=== PATIENT | male | born 1965 | race Caucasian/White ===

== ENCOUNTER 2018-05-28 08:00 | Outpatient (CLI) | payer MEDICAID ==
[2018-05-28 12:16] LABS: BASOPHILS % (AUTO) 0.6 %; EOSINOPHILS % (AUTO) 17.5 %; HGB - HEMOGLOBIN 14.9 g/dL (14.0-18.0); LYMPHOCYTES # (AUTO) 1.3 10^3/uL (1.5-3.5); LYMPHOCYTES % (AUTO) 22.1 %; MEAN CORPUSCULAR HEMOGLOBIN 31.1 pg (27.0-31.0); MEAN CORPUSCULAR HGB CONC 33.6 g/dL (32.0-36.0); MEAN CORPUSCULAR VOLUME 92.6 fL (80.0-94.0); MEAN PLATELET VOLUME 8.3 fL (7.4-11.4); MONOCYTES # (AUTO) 0.5 10^3/uL (0.0-1.0); MONOCYTES % (AUTO) 8.3 %; NEUTROPHILS % (AUTO) 51.5 %; PLT - PLATELET COUNT 277 10^3/uL (130-450); RED BLOOD COUNT 4.79 10^6/uL (4.70-6.10); WHITE BLOOD COUNT 5.9 x10^3/uL (4.8-10.8)
[2018-05-28 12:45] LABS: BUN - BLOOD UREA NITROGEN 13 mg/dL (6-20); CALCIUM 9.4 mg/dL (8.5-10.3); CARBON DIOXIDE - CO2 27 mmol/L (21-32); CHLORIDE 104 mmol/L (101-111); CHOL/HDL RATIO 4.2 (<5.0); CHOLESTEROL 212 mg/dL; GFR - MDRD 78 (>89); GLUCOSE 105 mg/dL (70-100); HDL CHOLESTEROL 51 mg/dL; LDL CHOLESTEROL,CALCULATED 142 mg/dL; LDL/HDL RATIO 2.8 (<3.6); SODIUM 139 mmol/L (135-145); VLDL CHOLESTEROL 19 mg/dL
== END 2018-05-28 23:59 | disposition home or self-care (01) ==
LOC: LAB.N 08:00
PROVIDERS: ATTEND Physician Assistant Medical
DX: Z00.00 Encounter for general adult medical examination without abnormal findings (principal); R21 Rash and other nonspecific skin eruption; J45.909 Unspecified asthma, uncomplicated; F90.9 Attention-deficit hyperactivity disorder, unspecified type; R68.82 Decreased libido
CPT/HCPCS: 36415; 80048; 80061; 81599; 83721; 84153; 84402; 84403; 84443; 85025

== ENCOUNTER 2019-08-14 12:14 | Emergency (ER) | payer MEDICAID ==
--- NOTE | 2019-08-14 12:40 | ED Physician Documentation ---
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 States pain mostly in posterior shoulder at lateral scapular area.) Worsened by: Moving, Palpating Associated symptoms: No: Weakness, Numbness, Swelling Contributing factors: No: Anticoagulated, Prior ortho surgery Similar symptoms before: Has not had sx before Review of Systems Constitutional: denies: Fever Nose: denies: Rhinorrhea / runny nose, Congestion Throat: denies: Sore throat Respiratory: denies: Cough Skin: denies: Abrasion (s), Laceration (s) Neurologic: denies: Altered mental status, Headache, Head injury PD PAST MEDICAL HISTORY - Past Medical History Cardiovascular: None Respiratory: None Neuro: None - Present Medications Home Medications: Ambulatory Orders Medication Instructions Recorded Confirmed Hydrocodone/Acetaminophen [[place] 1 each PO Q6H PRN #15 tablet 08/14/19 5-325 Tablet] Ibuprofen [Motrin] 600 mg PO TID PRN #25 tab 08/14/19 - Allergies Allergies/Adverse Reactions: Allergies Allergy/AdvReac Type Severity Reaction Status Date / Time No Known Drug Allergies Allergy Verified 08/14/19 12:33 - Living Situation Living Situation: reports: With family Living Arrangement: reports: At home PD ED PE NORMAL - Vitals Vital signs reviewed: Yes - General General: Alert and oriented X 3, Well developed/nourished, Other (appears in pain and holding shoulder guarded) - HEENT HEENT: Atraumatic, PERRL, EOMI - Neck Neck: Supple, no meningeal sign, No bony TTP, No adenopathy - Cardiac Cardiac: RRR, No murmur - Respiratory Respiratory: Clear bilaterally, Other (no chestwall tenderness) - Derm Derm: Normal color, Warm and dry - Extremities Extremities: Other (right shoulder with tenderness posterolaterally. No gross deformity. ROM unable to assess due to pain/guarding. ) - Neuro Neuro: Alert and oriented X 3, No motor deficit, Normal speech Eye Opening: Spontaneous Motor: Obeys Commands Verbal: Oriented GCS Score: 15 Results - Vitals Vitals: Vital Signs - 24 hr 08/14/19 08/14/19 08/14/19 12:24 12:44 14:02 Temperature 36.4 C L 36.8 C Heart Rate 69 73 74 Respiratory 18 22 18 Rate Blood Pressure 134/83 H 133/89 H 123/68 O2 Saturation 94 98 97 Oxygen O2 Source Room air - Rads (name of study) shoulder right Radiology: Prelim report reviewed (no fractures nor dislocations), See rad report PD MEDICAL DECISION MAKING - ED course Complexity details: considered differential (seems localized injury to right shoulder. Will get xray to assess for fracture/dislocation. ), d/w patient Departure - Departure Disposition: 01 Home, Self Care Clinical Impression: Accidental fall Qualifiers: Encounter type: initial encounter Qualified Code(s): W19.XXXA - Unspecified fall, initial encounter Right shoulder strain Qualifiers: Encounter type: initial encounter Qualified Code(s): S46.911A - Strain of unspecified muscle, fascia and tendon at shoulder and upper arm level, right arm, initial encounter Condition: Stable Record reviewed to determine appropriate education?: Yes Instructions: ED Sprain Shoulder Follow-Up: Pancho Ramos MD [Provider Admit Priv/Credential] - Prescriptions: Ibuprofen [Motrin] 600 mg PO TID PRN #25 tab PRN Reason: Pain Hydrocodone/Acetaminophen [[place] 5-325 Tablet] 1 each PO Q6H PRN #15 tablet PRN Reason: Pain Comments: Sling most of the time with gentle range of motion (not against gravity) several times a day to reduce stiffness and adhesions. Your x-ray does not show any fractures nor dislocations. Presume you have some injury of the ligaments and muscles of the shoulder. Limited use of the shoulder for the next week. Follow-up with orthopedics in about 5 to 8 days for recheck and decision on progression of use. Ibuprofen 3 times a day. Add Tylenol or pain medicine as needed. Forms: Activity restrictions Discharge Date/Time: 08/14/19 14:10
[2019-08-14] MEDS ORDERED: MORPHINE 10 MG/ML VIAL IM STA (12:57)
[2019-08-14] MEDS ORDERED: KETOROLAC 30 MG/ML VIAL IM STA (12:57)
--- NOTE | 2019-08-14 13:12 | XRAY Report ---
PROCEDURE: Shoulder 3 View RT INDICATIONS: fall onto rt ehsan waite thinks dislocated TECHNIQUE: 3 views of the shoulder were acquired. COMPARISON: None. FINDINGS: Bones: No fractures or dislocations. No suspicious bony lesions. Visualized ribs appear intact. Soft tissues: No suspicious soft tissue calcifications. IMPRESSION: No evidence acute bony abnormality of the right shoulder. Reviewed by: Brendon Edwards MD on 08/14/2019 1:11 PM PDT Approved by: Brendon Edwards MD on 08/14/2019 1:11 PM PDT Station ID: [id number]
[2019-08-14 14:03] VITALS: BP 123/68
== END 2019-08-14 14:10 | disposition home or self-care (01) ==
LOC: ED 12:14
DX: S46.911A Strain of unspecified muscle, fascia and tendon at shoulder and upper arm level, right arm, initial encounter (principal); V89.9XXA Person injured in unspecified vehicle accident, initial encounter
CPT/HCPCS: 96374; 99284

== ENCOUNTER 2019-09-30 09:31 | Outpatient (CLI) | payer MEDICAID ==
--- NOTE | 2019-09-30 09:50 | XRAY Report ---
PROCEDURE: Elbow 2 View RT INDICATIONS: BICEP TENDINIITIS TECHNIQUE: 2 views of the elbow were acquired. COMPARISON: None FINDINGS: Bones: No fractures or dislocations. No suspicious bony lesions. Soft tissues: No elbow joint effusion. No suspicious soft tissue calcifications. IMPRESSION: No evidence acute bony abnormality of the right elbow. Reviewed by: Brendon Edwards MD on 09/30/2019 9:49 AM PDT Approved by: Brendon Edwards MD on 09/30/2019 9:49 AM PDT Station ID: [id number]
== END 2019-09-30 09:32 | disposition home or self-care (01) ==
LOC: DI.WCP 09:31
PROVIDERS: ATTEND Physician Assistant
DX: M75.20 Bicipital tendinitis, unspecified shoulder (principal)

== ENCOUNTER 2019-10-11 09:17 | Outpatient (CLI) | payer MEDICAID ==
[2019-10-11] MEDS ORDERED: GADOBUTROL 7.5 MMOL/7.5 ML VIAL ONE (09:38)
[2019-10-11] MEDS ORDERED: LIDOCAINE-MPF 1% 30 ML VIAL ID PRN (10:08)
[2019-10-11] MEDS ORDERED: GADOBUTROL 7.5 MMOL/7.5 ML VIAL IVP ONE (10:08)
[2019-10-11] MEDS ORDERED: iohexoL-240 10 ML VIAL IVP ONE (10:09)
--- NOTE | 2019-10-11 11:00 | MRI Report ---
PROCEDURE: Arthrogram Shoulder RT INDICATIONS: SUPRASPINATUS TEAR CONTRAST: 12 mL of dilute intra-articular Gadolinium contrast solution TECHNIQUE: After the administration of 12 mL of dilute intra-articular Gadolinium contrast, oblique coronal T1 a nd T2 spin echo with fat saturation, oblique sagittal T1 spin echo with and without fat saturation, o blique sagittal T2 fast spin echo with fat saturation, axial T1 spin echo with fat saturation through the shoulder. COMPARISON: Fluoroscopic images from arthrogram injection performed earlier the same day. Right shou lder radiographs dated 08/14/2019. FINDINGS: Image quality: Mildly degraded by patient motion on multiple sequences. Diagnostic information is obt ained.. Rotator cuff: There is full-thickness tearing of the supraspinatus and infraspinatus tendons from the ir distal insertions with proximal tendon retraction measuring up to 3.9 cm. A few dorsal fibers are only rejected by approximately 0.9 cm. There is mild tendinosis in the distal teres minor tendon. The subscapularis tendon is completely torn and retracted by approximately 2.9 cm. Edema is seen within the rotator cuff musculature, compatible with superimposed muscle strains. The humeral head is mildly high riding with narrowing of the acromiohumeral interval to 4 mm. Biceps tendon: The biceps long head tendon is medially dislocated, now located anterior to the glenoh umeral joint. There is low-grade intrasubstance tearing of the proximal biceps long head tendon. Bones and bursae: No bone marrow contusions or fractures. There is moderate acromioclavicular joint osteoarthrosis. Glenohumeral joint contrast material communicates with the subacromial/subdeltoid bur sa in the acromioclavicular joint space. Capsule and soft tissues: There is nondisplaced tearing of the superior to posterosuperior labrum. P artial effacement of the normal fat signal in the rotator interval is noted. The coracohumeral ligame nt is of normal thickness. No intra-articular bodies. IMPRESSION: 1. Massive rotator cuff tearing including complete tears of the supraspinatus, infraspinatus, and grimes bscapularis tendons with retraction. Proximal retraction of the supraspinatus tendon measures up to 3 .9 cm. Low-grade muscle strains are seen in the rotator cuff musculature. The humeral head is mildly high riding with narrowing of the acromiohumeral interval to 4 mm. 2. Medial dislocation of the biceps long head tendon with partial intrasubstance tearing at the tend on anchor. The biceps tendon is now located along the anterior aspect of the glenohumeral joint line. 3. Nondisplaced tearing of the superior and posterosuperior labrum. 4. Moderate acromioclavicular joint osteoarthrosis. Reviewed by: Elvis Briones MD on 10/11/2019 10:59 AM PDT Approved by: Elvis Briones MD on 10/11/2019 10:59 AM PDT Station ID: [id number]
--- NOTE | 2019-10-11 11:21 | XRAY Report ---
PROCEDURE: Arthrogram Needle Placement INDICATIONS: SUPRASPINATUS TEAR CONTRAST: CONTRAST: Omnipauqe 240, FLUOROSCOPY TIME: FLUORO TIME: 0.13 min and NUMBER IMAGES: 2 TECHNIQUE: The indications, alternatives, benefits, risks, and complications of the procedure were explained to the patient. Written informed consent was obtained and placed in the chart. The shoulder was examin ed fluoroscopically and a site for needle placement chosen for entry into the glenohumeral joint from an anterior approach. The skin was prepped and draped in the usual fashion, and 1% lidocaine infilt rated from skin down to joint capsule. A spinal needle was inserted into the glenohumeral joint, and a small amount of iodinated contrast media injected to confirm intra-articular placement of the need le tip. This was followed by approximately 12 mL dilute solution of a gadolinium containing MR contr ast agent. The needle was removed and a dressing was applied. The patient was given postprocedural instructions and sent to the MR suite for MR imaging. FINDINGS: A single fluoroscopic spot image demonstrates intra-articular location of injected iodinated contrast . IMPRESSION: Successful fluoroscopically guided administration of dilute Gadolinium solution into the shoulder giancarlo mccabe for MR arthrogram. Reviewed by: Anastasia Tsang MD on 10/11/2019 11:20 AM PDT Approved by: Anastasia Tsang MD on 10/11/2019 11:20 AM PDT Station ID: [id number]
== END 2019-10-11 09:18 | disposition home or self-care (01) ==
LOC: DI 09:17
PROVIDERS: ATTEND Physician Assistant
DX: S46.011A Strain of muscle(s) and tendon(s) of the rotator cuff of right shoulder, initial encounter (principal); S43.431A Superior glenoid labrum lesion of right shoulder, initial encounter; S46.111A Strain of muscle, fascia and tendon of long head of biceps, right arm, initial encounter; M19.011 Primary osteoarthritis, right shoulder
CPT/HCPCS: 23350; 73222; 77002; A9585; Q9966

== ENCOUNTER 2019-10-22 14:22 | Outpatient (CLI) | payer MEDICAID | END 2019-10-22 14:23 | disposition home or self-care (01) | LOC: COV 14:22 | PROVIDERS: ATTEND Orthopaedic Surgery | DX: Z01.818 Encounter for other preprocedural examination (principal); M75.101 Unspecified rotator cuff tear or rupture of right shoulder, not specified as traumatic; Z20.828 Contact with and (suspected) exposure to other viral communicable diseases ==

== ENCOUNTER 2019-10-27 07:17 | Day surgery (SDC) | payer MEDICAID ==
[~2019-10-27 07:17] MED LIST: BACITRACIN ZINC OINT 1 PACKET TOP ONE; BUPIVACAINE 0.25% PF 10 ML VIAL ONE; BUPIVACAINE 0.25%-EPI 1:200000 PF 30 ML VIAL ONE; LIDOCAINE 1%-EPI 1:100000 20 ML MDV ONE; LIDOCAINE-MPF 1% 30 ML VIAL ONE
[2019-10-27] MEDS ORDERED: ROPIVACAINE 0.5% PF 20 ML AMPULE ONE (07:18)
[2019-10-27] MEDS ORDERED: SODIUM CHLORIDE 0.9% 10 ML ONE (07:19)
[2019-10-27] MEDS ORDERED: EPINEPHrine 1 MG/ML AMP ONE ×2 (07:20→10:44)
[2019-10-27] MEDS ORDERED: ACETAMINOPHEN 1,000 MG/100 ML 100 ML IV ONE ×2 (07:26→08:23)
[2019-10-27] MEDS ORDERED: CEFAZOLIN SODIUM IN 0.9 % NACL 2 GM/100 ML BAG IV ONE (07:26)
[2019-10-27] MEDS ORDERED: CELECOXIB 100 MG CAPSULE PO ONE (07:26)
--- NOTE | 2019-10-27 07:27 | ANESTHESIA ---
Pre-Anesthesia VS, & Labs - Diagnosis right shoulder rotator cuff tear - Procedure Right shoulder arthroscopy with rotator cuff repair Height: 5 ft 6 in - NPO >8 hours - Lab Results Lab results reviewed: Yes Home Medications and Allergies Home Medications: Ambulatory Orders Acetaminophen [Tylenol] 650 mg PO Q6H PRN 10/20/19 Albuterol Sulfate [Proair Hfa Inhaler] 1 - 2 puffs INH Q4H PRN 10/20/19 Acetaminophen [Tylenol] 650 mg PO Q6H PRN 10/20/19 Albuterol Sulfate [Proair Hfa Inhaler] 1 - 2 puffs INH Q4H PRN 10/20/19 Allergies/Adverse Reactions: Allergies Allergy/AdvReac Type Severity Reaction Status Date / Time theophylline [From Guy-Dur] Allergy Nausea Verified 10/27/19 07:50 Anes History & Medical History - Medical History Cardiovascular: reports: None Pulmonary: reports: Asthma Gastrointestinal: reports: GERD Urinary: reports: None Neuro: reports: None Musculoskeletal: reports: Chronic back pain, Other (right shoulder rotator cuff tear) Endocrine/Autoimmune: reports: None Blood Disorders: reports: None Skin: reports: Eczema Smoking Status: Never smoker - Surgical History Eyes Ears Nose Throat (EENT): Tonsil/Adenoidectomy Exam General: Alert, Oriented x3, Cooperative, No acute distress Dental: Dentures full Upper, Dentures full Lower Mouth Openin Fingerbreadth Neck Mobility: Normal Mallampati classification: I Respiratory: Lungs clear, Normal breath sounds, No respiratory distress, No accessory muscle use Cardiovascular: Regular rate, Normal S1, Normal S2, No murmurs Plan Anesthesia Type: General, Interscalene Block Regional Block: Per Surgeon's request for Post Op pain control Consent for Procedure(s) Verified and Reviewed: Yes Code Status: Attempt Resuscitation ASA classification: 2-Mild systemic disease Is this case an emergency?: No
[2019-10-27] MEDS ORDERED: LACTATED RINGERS 1,000 ML IV ONE ×2 (07:33→12:31)
[2019-10-27] MEDS ORDERED: PHENYLEPHRINE 10 MG/ML VIAL IV ONE (08:23)
[2019-10-27] MEDS ORDERED: PROPOFOL 200 MG/20 ML VIAL IVP ONE (08:23)
[2019-10-27] MEDS ORDERED: SUCCINYLCHOLINE 200 MG/10 ML VIAL IVP ONE (08:23)
[2019-10-27] MEDS ORDERED: ePHEDrine 50 MG/ML VIAL IVP ONE (08:23)
[2019-10-27] MEDS ORDERED: LIDOCAINE-MPF 2% 5 ML VIAL IM ONE (08:23)
[2019-10-27] MEDS ORDERED: DEXAMETHASONE 4 MG/ML VIAL IVP ONE (08:23)
[2019-10-27] MEDS ORDERED: ESMOLOL 100 MG/10 ML VIAL IVP ONE (08:23)
[2019-10-27] MEDS ORDERED: ONDANSETRON 4 MG/2 ML VIAL IVP ONE (08:23)
[2019-10-27] MEDS ORDERED: MIDAZOLAM 2 MG/2 ML VIAL IVP ONE (08:23)
[2019-10-27] MEDS ORDERED: NALOXONE 0.4 MG/ML VIAL IVP PRN (09:16)
[2019-10-27] MEDS ORDERED: ATROPINE ABBOJECT 1 MG/10 ML SYRINGE IVP PRN (09:16)
[2019-10-27] MEDS ORDERED: ePHEDrine 50 MG/ML VIAL IVP PRN (09:16)
[2019-10-27] MEDS ORDERED: ONDANSETRON 4 MG/2 ML VIAL IVP PRN (09:16)
[2019-10-27] MEDS ORDERED: HYDROmorphone 0.5 MG/0.5 ML SYRINGE IVP PRN (09:16)
[2019-10-27] MEDS ORDERED: MORPHINE 2 MG/ML CARPUJECT IVP PRN (09:16)
[2019-10-27] MEDS ORDERED: METOCLOPRAMIDE 10 MG/2 ML VIAL IVP PRN (09:16)
[2019-10-27] MEDS ORDERED: fentaNYL 100 MCG/2 ML VIAL IVP PRN (09:16)
[2019-10-27] MEDS ORDERED: LACTATED RINGERS 1,000 ML IV SCH (10:00)
[2019-10-27] MEDS ORDERED: HYDROcod/ACETAM 10 MG/325 MG TABLET PO PRN (12:29)
[2019-10-27] MEDS ORDERED: KETOROLAC 15 MG/ML VIAL IVP STA (12:29)
[2019-10-27] MEDS ORDERED: HYDROcod/ACETAM 5/325 MG TABLET PO PRN (12:29)
--- NOTE | 2019-10-27 13:11 | OPERATIVE REPORT ---
Operative Report - General Procedure Date: 10/27/19 Planned Procedure: Arthroscopy right shoulder, rotator cuff repair Pre-Op Diagnosis: Large traumatic rotator cuff tear right shoulder Procedure Performed: Arthroscopy right shoulder, rotator cuff repair right shoulder Post Op Diagnosis: Large retracted rotator cuff tear right shoulder - Procedure Note Primary Surgeon: Richard Franklin M.D. Secondary Surgeon: WILLIE Avendano Anesthesia Technique: General ET tube, Regional block Estimated Blood Loss (mL): 20 Indications: This is a 54-year-old man with a history of a fall and subsequent pain and weakness to his right shoulder within the past 3 months. He is not improving and has pain and weakness to the right shoulder, very poor active motion but good passive motion. Routine radiographs are normal. 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 The tendon was retracted and difficult to mobilize. The cuff was retracted medially and posteriorly.The tendon retraction was so great that most of all the humeral head was exposed Complications: None - Other Other Information/Narrative: The patient was brought to the operating room. After satisfactory anesthesia was achieved, he was placed in a beachchair positioner. The right upper extremity was prepped and draped in a sterile manner in the usual fashion. Care was taken to place the neck in a neutral position. A timeout procedure was performed the entire operating room team and all were in agreement. Arthroscopy was performed through a posterior glenohumeral portal using the Canjilon 30 degree of black diagnostic arthroscope, V[place]o camera and arthroscopic pump through the arthroscope. An anterior portal was established in the safe triangle under direct visualization. The articular surfaces of the humeral head and glenoid were intact as well as the glenoid labrum although there was some fraying of the inferior glenoid labrum there was no detachment. The biceps tendon was unstable. The footprint was obviously abnormal with complete loss of the normal footprint from tendon disruption. The arthroscope was then placed in the subacromial space again using a posterior portal. A lateral subacromial space was used to perform a bursectomy and expose the rotator cuff tear. A posterior lateral portal was made for the arthroscope. Cannulas were placed anteriorly, posteriorly and also through the lateral subacromial space. A traction FiberWire suture was inserted. The cuff was mobilized by dissecting on the articular and bursal sides and I was able to mobilize the cuff to bring it close to its normal footprint but still incomplete coverage anteriorly. The Arthrex fiber tape was utilized using mattress sutures anteriorly and 1 posteri silvia. A total of 6 fiber tape suture strands were inserted with 1 acting as a rip stop stitch. The suture tape held well and the tendon mobilized reasonably well but still a partial repair since mobilization was not totally back to the anatomic location of the tuberosity. The biceps tendon was incorporated in the repair to act as a tenodesis. 3 Arthrex suture anchors were inserted with each of the 2 fiber tape strands going to a single anchor. This provided a secure repair with motion with the arm out of side. The anchors were inserted through a mini open incision measuring 2 cm. The wounds were irrigated. Incisions were closed with 4-0 nylon, Xeroform, dry sterile dressing and Pancho wrap. He did receive 2 g of Ancef intravenously and tolerated the procedure well he was placed in a abduction sling.
--- NOTE | 2019-10-27 13:21 | ANESTHESIA POST OP EVALUATION ---
Anesthesia Post Eval - Post Anesthesia Eval Vitals: Last Vital Signs Temp 36.8 C 10/27/19 13:15 Pulse 87 10/27/19 13:15 Resp 16 10/27/19 13:15 BP 08/72 L 10/27/19 13:15 Pulse Ox 94 10/27/19 13:15 CV Function Including HR & BP: positive: Stable Pain Control: positive: Satisfactory Nausea & Vomiting: positive: Negative Mental Status: positive: Baseline Respiratory Status: Airway Patent Hydration Status: Satisfactory Anesthesia Complications: positive: None
[2019-10-27 13:36] VITALS: BP 112/62
== END 2019-10-27 07:18 | disposition home or self-care (01) ==
LOC: SDS 07:17
PROVIDERS: ATTEND Orthopaedic Surgery
DX: S46.011A Strain of muscle(s) and tendon(s) of the rotator cuff of right shoulder, initial encounter (principal); S46.111A Strain of muscle, fascia and tendon of long head of biceps, right arm, initial encounter; W17.89XA Other fall from one level to another, initial encounter
CPT/HCPCS: 29827; 29828; A9270; C1713; J0131; J0330; J0690; J7120

== ENCOUNTER 2019-11-24 08:00 | Outpatient (CLI) | payer MEDICAID ==
[2019-11-24 12:31] LABS: BASOPHILS % (AUTO) 0.5 %; HGB - HEMOGLOBIN 14.9 g/dL (14.0-18.0); LYMPHOCYTES % (AUTO) 20.3 %; MEAN CORPUSCULAR HEMOGLOBIN 31.5 pg (27.0-31.0); MEAN CORPUSCULAR HGB CONC 34.3 g/dL (32.0-36.0); MEAN CORPUSCULAR VOLUME 91.8 fL (80.0-94.0); MEAN PLATELET VOLUME 9.9 fL (7.4-11.4); MONOCYTES % (AUTO) 8.8 %; NEUTROPHILS % (AUTO) 56.1 %; PLT - PLATELET COUNT 289 10^3/uL (130-450); RED BLOOD COUNT 4.73 10^6/uL (4.70-6.10); RED CELL DISTRIBUTION WIDTH 12.2 % (12.0-15.0); WHITE BLOOD COUNT 7.6 x10^3/uL (4.8-10.8)
[2019-11-24 12:46] LABS: ABNORMAL LYMPHS % (MANUAL) 0 %; BAND NEUTROPHILS % (MANUAL) 0 %
[2019-11-24 12:51] LABS: DIFFERENTIAL COMMENT MANUAL DIFFERENTIAL; EOSINOPHILS # (MANUAL) 0.7 10^3/uL (0-0.7); LYMPHOCYTES # (MANUAL) 1.4 10^3/uL (1.5-3.5); LYMPHOCYTES % (MANUAL) 18 %; MONOCYTES # (MANUAL) 0.4 10^3/uL (0.0-1.0); PLATELET ESTIMATE, MANUAL NORMAL (130-450,000) (NORMAL); PLATELET MORPHOLOGY NORMAL APPEARANCE (NORMAL); RBC MORPHOLOGY (MULTIPLE) NORMAL APPEARANCE (NORMAL)
[2019-11-24 12:52] LABS: ALBUMIN 4.6 g/dL (3.2-5.5); ALBUMIN/GLOBULIN RATIO 1.6 (1.0-2.2); ALKALINE PHOSPHATASE 62 IU/L (42-121); ALT ALANINE AMINOTRANSFERASE 40 IU/L (10-60); AST ASPARTATE AMINOTRANSFERASE 25 IU/L (10-42); BILIRUBIN,TOTAL 0.9 mg/dL (0.2-1.0); BUN - BLOOD UREA NITROGEN 19 mg/dL (6-20); CALCIUM 9.8 mg/dL (8.5-10.3); CARBON DIOXIDE - CO2 27 mmol/L (21-32); CHLORIDE 103 mmol/L (101-111); CHOL/HDL RATIO 5.7 (<5.0); CHOLESTEROL 216 mg/dL; GLUCOSE 109 mg/dL (70-100); HDL CHOLESTEROL 38 mg/dL; LDL CHOLESTEROL,CALCULATED 138 mg/dL; LDL/HDL RATIO 3.6 (<3.6); SODIUM 140 mmol/L (135-145); TOTAL PROTEIN 7.5 g/dL (6.7-8.2); VLDL CHOLESTEROL 40 mg/dL
== END 2019-11-24 23:59 | disposition home or self-care (01) ==
LOC: LAB.WCP 08:00
PROVIDERS: ATTEND Nurse Practitioner Family
DX: Z00.00 Encounter for general adult medical examination without abnormal findings (principal)
CPT/HCPCS: 36415; 80053; 80061; 83721; 84443; 85025

== ENCOUNTER 2020-09-02 10:34 | Outpatient (CLI) | payer MEDICAID ==
--- NOTE | 2020-09-02 11:41 | XRAY Report ---
PROCEDURE: Chest 2 View X-Ray INDICATIONS: RESPIRATORY INFECTION TECHNIQUE: 2 view(s) of the chest. COMPARISON: None. FINDINGS: Surgical changes and devices: None. Lungs and pleura: No pleural effusions or pneumothorax. Lungs are clear. Mediastinum: Mediastinal contours are normal. Heart size is normal. Bones and chest wall: No suspicious bony abnormalities. Age-appropriate degenerative changes are see n. Soft tissues appear unremarkable. IMPRESSION: Negative for infiltrate. Reviewed by: Vic Morel MD on 09/02/2020 10:40 AM CADE Approved by: Vic Morel MD on 09/02/2020 10:40 AM AKMANUEL Station ID: [id number]
== END 2020-09-02 10:35 | disposition home or self-care (01) ==
LOC: DI.N 10:34
PROVIDERS: ATTEND Nurse Practitioner
DX: J06.9 Acute upper respiratory infection, unspecified (principal); Z20.822 Contact with and (suspected) exposure to COVID-19

== ENCOUNTER 2021-03-15 08:49 | Outpatient (CLI) | payer MEDICAID ==
--- NOTE | 2021-03-15 16:31 | XRAY Report ---
PROCEDURE: Hand 3 View RT INDICATIONS: HAND PAIN TECHNIQUE: 3 views of the hand acquired. COMPARISON: None. FINDINGS: Bones: No fractures or dislocations. There is mild narrowing of the distal interphalangeal joints. V isualized is also mild narrowing at the first metacarpophalangeal and carpometacarpal joints. No disc rete bony erosions. Osseous structures appear osteopenic. No suspicious bony lesions. Soft tissues: No suspicious soft tissue calcifications. IMPRESSION: 1. No fracture or dislocation. 2. Mild osteoarthritic changes of the DIP joints as well as the first MCP and CMC joints. Reviewed by: Aguilar Vega MD on 03/15/2021 4:30 PM PST Approved by: Aguilar Vega MD on 03/15/2021 4:30 PM [facility] Station ID: [id number]
== END 2021-03-15 08:50 | disposition home or self-care (01) ==
LOC: DI.WOS 08:49
PROVIDERS: ATTEND Physician Assistant
DX: M18.11 Unilateral primary osteoarthritis of first carpometacarpal joint, right hand (principal); M19.041 Primary osteoarthritis, right hand

== ENCOUNTER 2021-08-29 14:34 | Outpatient (CLI) | payer MEDICAID ==
--- NOTE | 2021-08-29 17:16 | XRAY Report ---
PROCEDURE: Cervical Spine w/Flex/Ext INDICATIONS: CERVICALGIA TECHNIQUE: 7 views of the cervical spine were acquired. COMPARISON: None. FINDINGS: Bones: No fractures or dislocations to the C7-T1 level. Degenerative endplate changes, loss of disc height and bilateral facet hypertrophic changes are noted at C3-4 through C7-T1 levels. Right worse than left bilateral bony foraminal stenosis at C3-4, C5-6 and C6-7 levels are seen on oblique views. No suspicious bony lesions. There is decreased range of motion between flexion and extension, with p reserved normal bony alignment. Soft tissues: Prevertebral soft tissues are normal in thickness. IMPRESSION: 1. Degenerative disc disease throughout cervical spine with right worse than left bilateral bony fora mayuri stenosis as described above. No acute fracture or dislocation. 2. Decreased range of motion on lateral flexion and extension views with preserved cervical spine ali gnment. Reviewed by: You Young MD on 08/29/2021 5:15 PM PDT Approved by: You Young MD on 08/29/2021 5:15 PM PDT Station ID: [id number]
--- NOTE | 2021-08-29 17:53 | XRAY Report ---
PROCEDURE: Skull 2 View INDICATIONS: OCCIPITAL NEURALGIA TECHNIQUE: 3 view(s) of the skull acquired. COMPARISON: None FINDINGS: Bones: No fractures. No suspicious bony lesions. Visualized sinuses appear clear. Soft tissues: No soft tissue calcifications. No suspicious soft tissue densities. IMPRESSION: Unremarkable skull radiographs Reviewed by: Byron Casas MD on 08/29/2021 4:52 PM AKDT Approved by: Byron Casas MD on 08/29/2021 4:52 PM AKDT Station ID: [id number]
== END 2021-08-29 14:35 | disposition home or self-care (01) ==
LOC: DI.N 14:34
PROVIDERS: ATTEND Family Medicine
DX: M54.81 Occipital neuralgia (principal); M47.812 Spondylosis without myelopathy or radiculopathy, cervical region; M50.31 Other cervical disc degeneration, high cervical region; M48.02 Spinal stenosis, cervical region

== ENCOUNTER 2021-11-08 08:14 | Day surgery (SDC) | payer MEDICAID ==
[2021-11-08] MEDS ORDERED: LACTATED RINGERS 1,000 ML IV ONE (08:16)
--- NOTE | 2021-11-08 08:48 | HISTORY & PHYSICAL EXAMINATION ---
Chief Complaint - Chief Complaint Chief Complaint: here for colon cancer screening History of Present Illness - History Obtained From Records Reviewed: yes History obtained from: pt Exam Limitations: none - History of Present Illness HPI Comment/Other: no colon problems. father and grandfather had colon cancer at an older age. He had a colonoscopy age 49. he may have had a polyp. History - Past Medical History Cardiovascular: reports: None Respiratory: reports: Asthma Neuro: reports: None Endocrine/Autoimmune: reports: None GI: reports: GERD : reports: None HEENT: reports: None Psych: reports: ADD/ADHD Musculoskeletal: reports: Chronic back pain, Other Derm: reports: Eczema MRSA Hx?: No - Past Surgical History Ortho: reports: Rotator cuff repair, Shoulder arthroplasty HEENT: reports: Tonsil/Adenoidectomy - POLST Patient has POLST: No Meds/Allgy - Home Medications Home Medications: Ambulatory Orders Medication Instructions Recorded Confirmed Acetaminophen [Tylenol] 650 mg PO Q6H PRN 10/20/19 11/07/21 Albuterol Sulfate [Proair Hfa 1 - 2 puffs INH Q4H PRN 10/20/19 11/07/21 Inhaler] - Allergies Allergies/Adverse Reactions: Allergies Allergy/AdvReac Type Severity Reaction Status Date / Time theophylline [From Guy-Dur] Allergy Nausea Verified 10/27/19 07:50 Review of Systems - Other Findings Other Findings: 10 pt ros as above otherwise unremarkable Exam - Vital Signs Vital Signs: Vital Signs x48h Temp Pulse Resp BP Pulse Ox O2 Flow Rate 11/08/21 08:24 36.5 C 80 16 116/85 H 97 0 - Physical Exam General Appearance: positive: No acute distress, Alert Eyes Bilateral: positive: PERRL, EOMI, No scleral icterus ENT: positive: No signs of dehydration Neck: positive: No JVD Respiratory: positive: No respiratory distress, Breath sounds nml Cardiovascular: positive: Regular rate & rhythm Abdomen: positive: Non-tender, No distention Neurologic/Psychiatric: positive: Oriented x3 Conclusion/Plan - Problem List (1) Colon cancer screening Conclusion/Plan: plan colonoscopy. parq held and consent obtained
--- NOTE | 2021-11-08 08:57 | ANESTHESIA ---
Pre-Anesthesia VS, & Labs - Diagnosis colon screening - Procedure colonoscopy Vital Signs: Temp Pulse Resp BP Pulse Ox O2 Flow Rate 36.5 C 80 16 116/85 H 97 0 11/08/21 08:24 11/08/21 08:24 11/08/21 08:24 11/08/21 08:24 11/08/21 08:24 11/08/21 08:24 Height: 5 ft 5 in Weight (kg): 74.2 kg Body Mass Index: 27.2 BMI Classification: Overweight - NPO >8 hours - Lab Results Lab results reviewed: No Home Medications and Allergies Acetaminophen [Tylenol] 650 mg PO Q6H PRN 10/20/19 Albuterol Sulfate [Proair Hfa Inhaler] 1 - 2 puffs INH Q4H PRN 10/20/19 Allergies/Adverse Reactions: Allergies Allergy/AdvReac Type Severity Reaction Status Date / Time theophylline [From Guy-Dur] Allergy Nausea Verified 10/27/19 07:50 Anes History & Medical History - Anesthetic History Anesthesia Complications: reports: No previous complications Family history of Anesthesia Complications: Denies Family history of Malignant Hyperthermia: Denies - Medical History Cardiovascular: reports: None Pulmonary: reports: Asthma Gastrointestinal: reports: GERD Urinary: reports: None Neuro: reports: None Musculoskeletal: reports: Chronic back pain, Other Endocrine/Autoimmune: reports: None Blood Disorders: reports: None Skin: reports: Eczema Smoking Status: Never smoker Psychosocial: reports: Alcohol, Cannabis History of Cancer?: No - Surgical History Eyes Ears Nose Throat (EENT): reports: Tonsil/Adenoidectomy Orthopedic: reports: Rotator cuff repair, Shoulder arthroplasty Exam General: Alert, Oriented x3, Cooperative, No acute distress Dental: Dentures full Upper, Dentures full Lower Mouth Openin Fingerbreadth Neck Mobility: Reduced Mallampati classification: III Thyromental Distance: 4-6 cm (+chu) Mental/Cognitive Status: Alert/Oriented X3, Normal for patient Cognitive Status: Within normal limits Plan Anesthesia Type: General Consent for Procedure(s) Verified and Reviewed: Yes Code Status: Attempt Resuscitation ASA classification: 2-Mild systemic disease Is this case an emergency?: No
[2021-11-08] MEDS ORDERED: MIDAZOLAM 2 MG/2 ML VIAL ONE (09:30)
[2021-11-08] MEDS ORDERED: PROPOFOL 500 MG/50 ML 500 MG/50 ML VIAL ONE (09:35)
[2021-11-08] MEDS ORDERED: LACTATED RINGERS 400 ML IV ONE (09:43)
--- NOTE | 2021-11-08 10:07 | ANESTHESIA POST OP EVALUATION ---
Anesthesia Post Eval - Post Anesthesia Eval Vitals: Last Vital Signs Temp 36.2 C L 11/08/21 09:45 Pulse 75 11/08/21 09:45 Resp 12 11/08/21 09:45 BP 110/69 11/08/21 09:45 Pulse Ox 97 11/08/21 09:45 O2 Flow Rate 0 11/08/21 08:24 CV Function Including HR & BP: Stable Pain Control: Satisfactory Nausea & Vomiting: Negative Mental Status: Baseline Respiratory Status: Airway Patent Hydration Status: Satisfactory Anesthesia Complications: None
[2021-11-08 10:11] VITALS: BP 109/67
== END 2021-11-08 08:15 | disposition home or self-care (01) ==
LOC: SDS 08:14
PROVIDERS: ATTEND Surgery
DX: Z12.11 Encounter for screening for malignant neoplasm of colon (principal); Z80.0 Family history of malignant neoplasm of digestive organs; J45.909 Unspecified asthma, uncomplicated
CPT/HCPCS: 45378; J7120

== ENCOUNTER 2021-11-15 09:56 | Outpatient (CLI) | payer MEDICAID ==
[2021-11-15 12:06] LABS: BASOPHILS # (AUTO) 0.1 10^3/uL (0.0-0.1); BASOPHILS % (AUTO) 0.5 %; EOSINOPHILS # (AUTO) 0.5 10^3/uL (0.0-0.7); HCT - HEMATOCRIT 52.1 % (42.0-52.0); HGB - HEMOGLOBIN 18.1 g/dL (14.0-18.0); LYMPHOCYTES # (AUTO) 1.8 10^3/uL (1.5-3.5); LYMPHOCYTES % (AUTO) 18.4 %; MEAN CORPUSCULAR HEMOGLOBIN 31.5 pg (27.0-31.0); MEAN CORPUSCULAR HGB CONC 34.7 g/dL (32.0-36.0); MEAN CORPUSCULAR VOLUME 90.8 fL (80.0-94.0); MEAN PLATELET VOLUME 9.4 fL (7.4-11.4); MONOCYTES # (AUTO) 0.9 10^3/uL (0.0-1.0); NEUTROPHILS # (AUTO) 6.5 10^3/uL (1.5-6.6); NEUTROPHILS % (AUTO) 66.7 %; PLT - PLATELET COUNT 302 10^3/uL (130-450); RED BLOOD COUNT 5.74 10^6/uL (4.70-6.10); RED CELL DISTRIBUTION WIDTH 11.9 % (12.0-15.0); WHITE BLOOD COUNT 9.8 x10^3/uL (4.8-10.8)
[2021-11-15 12:39] LABS: ALBUMIN 4.5 g/dL (3.2-5.5); ALBUMIN/GLOBULIN RATIO 1.3 (1.0-2.2); ALKALINE PHOSPHATASE 63 IU/L (42-121); ALT ALANINE AMINOTRANSFERASE 60 IU/L (10-60); AST ASPARTATE AMINOTRANSFERASE 50 IU/L (10-42); BUN - BLOOD UREA NITROGEN 12 mg/dL (6-20); CALCIUM 10.2 mg/dL (8.5-10.3); CARBON DIOXIDE - CO2 27 mmol/L (21-32); CHLORIDE 101 mmol/L (101-111); CHOL/HDL RATIO 5.2 (<5.0); CHOLESTEROL 278 mg/dL; CREATININE 1.1 mg/dL (0.6-1.2); GFR - MDRD 69 (>89); GLUCOSE 120 mg/dL (70-100); HDL CHOLESTEROL 53 mg/dL; LDL CHOLESTEROL,CALCULATED 165 mg/dL; LDL/HDL RATIO 3.1 (<3.6); POTASSIUM 5.1 mmol/L (3.5-5.0); SODIUM 136 mmol/L (135-145); TRIGLYCERIDES 300 mg/dL; VLDL CHOLESTEROL 60 mg/dL
[2021-11-15 12:40] LABS: THYROID STIMULATING HORMONE 2.1 uIU/mL (0.34-5.60)
== END 2021-11-15 09:57 | disposition home or self-care (01) ==
LOC: LAB.N 09:56
PROVIDERS: ATTEND Family Medicine
DX: J45.909 Unspecified asthma, uncomplicated (principal); F90.9 Attention-deficit hyperactivity disorder, unspecified type; Z12.5 Encounter for screening for malignant neoplasm of prostate
CPT/HCPCS: 36415; 80053; 80061; 83721; 84153; 84443; 85025

== ENCOUNTER 2021-11-28 07:23 | Day surgery (SDC) | payer MEDICAID ==
[~2021-11-28 07:23] MED LIST changes: +ACETAMINOPHEN 500 MG TABLET PO ONE; -BACITRACIN ZINC OINT 1 PACKET TOP ONE; -BUPIVACAINE 0.25% PF 10 ML VIAL ONE; -BUPIVACAINE 0.25%-EPI 1:200000 PF 30 ML VIAL ONE; +BUPIVACAINE 0.5% PF 30 ML VIAL ONE; +CELECOXIB 100 MG CAPSULE PO ONE; -LIDOCAINE 1%-EPI 1:100000 20 ML MDV ONE; +LIDOCAINE MPF 2%-EPI 1:200000 20 ML VIAL ONE; -LIDOCAINE-MPF 1% 30 ML VIAL ONE
[2021-11-28] MEDS ORDERED: LACTATED RINGERS 1,000 ML IV ONE (07:37)
--- NOTE | 2021-11-28 07:59 | ANESTHESIA ---
Pre-Anesthesia VS, & Labs - Diagnosis R 3rd 4th trigger finger - Procedure R 3rd 4th trigger finger release Vital Signs: Temp Pulse Resp BP Pulse Ox O2 Flow Rate 36.6 C 76 16 130/77 97 0 11/28/21 07:38 11/28/21 07:38 11/28/21 07:38 11/28/21 07:38 11/28/21 07:38 11/28/21 07:38 Height: 5 ft 6 in Weight (kg): 76.5 kg Body Mass Index: 27.2 BMI Classification: Overweight - NPO >8 hours - Lab Results Lab results reviewed: Yes Home Medications and Allergies Acetaminophen [Tylenol] 650 mg PO Q6H PRN 10/20/19 Albuterol Sulfate [Proair Hfa Inhaler] 1 - 2 puffs INH Q4H PRN 10/20/19 Allergies/Adverse Reactions: Allergies Allergy/AdvReac Type Severity Reaction Status Date / Time theophylline [From Guy-Dur] Allergy Nausea Verified 11/28/21 06:52 Anes History & Medical History - Anesthetic History Anesthesia Complications: reports: No previous complications Family history of Anesthesia Complications: Denies Family history of Malignant Hyperthermia: Denies - Medical History Cardiovascular: reports: None Pulmonary: reports: Asthma Gastrointestinal: reports: GERD Urinary: reports: None Neuro: reports: None Musculoskeletal: reports: Chronic back pain, Other Endocrine/Autoimmune: reports: None Blood Disorders: reports: None Skin: reports: Eczema Smoking Status: Never smoker Psychosocial: reports: Alcohol, Cannabis History of Cancer?: No - Surgical History Eyes Ears Nose Throat (EENT): reports: Tonsil/Adenoidectomy Orthopedic: reports: Rotator cuff repair, Shoulder arthroplasty Exam General: Alert, Oriented x3, Cooperative Dental: Dentures full Upper, Dentures full Lower Mouth Openin Fingerbreadth Neck Mobility: Normal Mallampati classification: II Thyromental Distance: 4-6 cm Respiratory: Lungs clear, Normal breath sounds, No respiratory distress Cardiovascular: Regular rate Neurological: Normal speech Mental/Cognitive Status: Alert/Oriented X3, Normal for patient Cognitive Status: Within normal limits Plan Anesthesia Type: General, Total IV Consent for Procedure(s) Verified and Reviewed: Yes Code Status: Attempt Resuscitation ASA classification: 2-Mild systemic disease Is this case an emergency?: No
[2021-11-28] MEDS ORDERED: PROPOFOL 200 MG/20 ML VIAL IVP ONE (08:00)
[2021-11-28] MEDS ORDERED: PROPOFOL 500 MG/50 ML 500 MG/50 ML VIAL ONE (08:00)
[2021-11-28] MEDS ORDERED: MIDAZOLAM 2 MG/2 ML VIAL ONE (08:00)
[2021-11-28] MEDS ORDERED: fentaNYL 100 MCG/2 ML VIAL ONE (08:00)
[2021-11-28] MEDS ORDERED: ATROPINE ABBOJECT 1 MG/10 ML SYRINGE IVP PRN (08:01)
[2021-11-28] MEDS ORDERED: ONDANSETRON 4 MG/2 ML VIAL IVP PRN (08:01)
[2021-11-28] MEDS ORDERED: fentaNYL 100 MCG/2 ML VIAL IVP PRN (08:01)
[2021-11-28] MEDS ORDERED: HYDROmorphone 0.5 MG/0.5 ML SYRINGE IVP PRN (08:01)
[2021-11-28] MEDS ORDERED: MORPHINE 2 MG/ML CARPUJECT IVP PRN (08:01)
[2021-11-28] MEDS ORDERED: NALOXONE 0.4 MG/ML VIAL IVP PRN (08:01)
[2021-11-28] MEDS ORDERED: METOCLOPRAMIDE 10 MG/2 ML VIAL IVP PRN (08:01)
[2021-11-28] MEDS ORDERED: ePHEDrine 50 MG/ML VIAL IVP PRN (08:01)
[2021-11-28] MEDS ORDERED: LIDOCAINE-PF 2% 10 ML AMP SUBQ ONE (08:35)
[2021-11-28] MEDS ORDERED: LIDOCAINE MPF 2%-EPI 1:200000 20 ML VIAL SUBQ ONE ×2 (08:49)
[2021-11-28] MEDS ORDERED: BUPIVACAINE 0.5% PF 30 ML VIAL INFIL ONE ×2 (08:49)
[2021-11-28] MEDS ORDERED: LACTATED RINGERS 1,000 ML IV SCH (09:00)
[2021-11-28] MEDS ORDERED: LACTATED RINGERS 200 ML IV ONE (09:21)
--- NOTE | 2021-11-28 09:31 | OPERATIVE REPORT ---
Operative Report - General Procedure Date: 11/28/21 Planned Procedure: Flexor tendon sheaths releases of right third and fourth fingers Pre-Op Diagnosis: Stenosing tenosynovitis of flexor tendons right third and fourth fingers Procedure Performed: Flexor tendon sheath release right third and fourth fingers Post Op Diagnosis: Same as preoperative diagnosis - Procedure Note Primary Surgeon: Richard Franklin MD Secondary Surgeon: Whitney TAPIA Anesthesia Provider: Paulie Arthur CRNA Anesthesia Technique: Local, MAC Estimated Blood Loss (mL): 3 Indications: This is a hard-working 56-year-old man with painful triggering of right third and fourth fingers despite previous steroid injections. He had ostensible triggering of both third and fourth fingers of right hand associated with pain. There is tenderness over the flexor tendon sheath to the right third and fourth fingers as well. He had full active range of motion of his third and fourth fingers, right hand Findings: The flexor tendons appeared normal to both right third and fourth fingers.There was no triggering of the right third or fourth fingers after the flexor tendon sheath release had been performed Complications: None - Other Other Information/Narrative: The patient was brought to the operating room, placed in the supine position, Right arm placed on a arm extension table. The right upper extremity was prepped and draped in a sterile manner in the usual fashion. A timeout procedure was performed by the entire operating room team and all were in agreement. A 50-50 mixture of 2% Xylocaine with epinephrine And 0.5% Marcaine was injected directly over the flexor tendon at the distal palmar crease region.A total of 8 cc was injected. After satisfactory anesthesia was achieved, a transverse 1 cm incision was made in line with the Right third finger and at the level of the distal palmar crease. Once the skin was incised, a spreading technique was utilized to expose the flexor tendon. Right angle retractors were placed on each side of the flexor tendon. The flexor tendon sheath was identified and was released from proximal to distal using tenotomy scissors. The same procedure was done to the right fourth finger using a separate transverse incision. The patient was asked to actively extend and flex his fingers and there is no sign of triggering with active motion of the Right third And fourth fingers. Wound was irrigated. The incision was closed with 3 4-0 nylon sutures. A sterile Xeroform dressing was applied. He tolerated procedure wellA physician registered sales assistant was medically necessary to help with prepping and draping, positioning, protection of vital structures, assistance during the procedure including wound closure, dressing and/or splinting.The tourniquet time was 13 minutes and the tourniquet was released prior to closure
[2021-11-28] MEDS ORDERED: CELECOXIB 100 MG CAPSULE PO PRN (09:33)
[2021-11-28] MEDS ORDERED: ACETAMINOPHEN 500 MG TABLET PO PRN (09:33)
[2021-11-28] MEDS ORDERED: oxyCODONE 5 MG TABLET PO PRN (09:33)
[2021-11-28 09:42] VITALS: BP 114/70
--- NOTE | 2021-11-28 12:23 | ANESTHESIA POST OP EVALUATION ---
Anesthesia Post Eval - Post Anesthesia Eval Vitals: Last Vital Signs Temp 36.4 C L 11/28/21 09:21 Pulse 63 11/28/21 09:40 Resp 16 11/28/21 09:40 BP 114/70 11/28/21 09:40 Pulse Ox 96 11/28/21 09:40 O2 Flow Rate 0 11/28/21 07:38 CV Function Including HR & BP: Stable Pain Control: Satisfactory Nausea & Vomiting: Negative Mental Status: Baseline Respiratory Status: Airway Patent Hydration Status: Satisfactory Anesthesia Complications: None
== END 2021-11-28 07:24 | disposition home or self-care (01) ==
LOC: SDS 07:23
PROVIDERS: ATTEND Orthopaedic Surgery
DX: M65.331 Trigger finger, right middle finger (principal); M65.341 Trigger finger, right ring finger
CPT/HCPCS: 26055; A9270; J7120

== ENCOUNTER 2022-03-20 14:33 | Outpatient (CLI) | payer MEDICAID ==
--- NOTE | 2022-03-20 19:52 | XRAY Report ---
PROCEDURE: Elbow 3 View RT INDICATIONS: ELBOW PAIN,RIGHT TECHNIQUE: 3 views of the elbow were acquired. COMPARISON: 09/30/2019 FINDINGS: Bones: No fractures or dislocations. No suspicious bony lesions. Soft tissues: No elbow joint effusion. No suspicious soft tissue calcifications. Soft tissue swell ing noted over the olecranon IMPRESSION: Soft tissue swelling over the olecranon, consistent with olecranon bursitis Reviewed by: Byron Casas MD on 03/20/2022 6:51 PM AK Approved by: Byron Casas MD on 03/20/2022 6:51 PM AKST Station ID: [id number]
== END 2022-03-20 14:34 | disposition home or self-care (01) ==
LOC: DI 14:33
PROVIDERS: ATTEND Family Medicine
DX: M25.521 Pain in right elbow (principal); R22.31 Localized swelling, mass and lump, right upper limb

== ENCOUNTER 2023-01-21 11:42 | Outpatient (CLI) | payer MEDICAID ==
[2023-01-21 17:57] LABS: BASOPHILS # (AUTO) 0.1 10^3/uL (0.0-0.1); BASOPHILS % (AUTO) 0.7 %; EOSINOPHILS # (AUTO) 0.4 10^3/uL (0.0-0.7); HCT - HEMATOCRIT 45.8 % (42.0-52.0); HGB - HEMOGLOBIN 15.4 g/dL (14.0-18.0); LYMPHOCYTES # (AUTO) 1.5 10^3/uL (1.5-3.5); MEAN CORPUSCULAR HEMOGLOBIN 31.2 pg (27.0-31.0); MEAN CORPUSCULAR HGB CONC 33.6 g/dL (32.0-36.0); MEAN CORPUSCULAR VOLUME 92.9 fL (80.0-94.0); MEAN PLATELET VOLUME 9.7 fL (7.4-11.4); MONOCYTES # (AUTO) 0.8 10^3/uL (0.0-1.0); MONOCYTES % (AUTO) 10.9 %; NEUTROPHILS # (AUTO) 4.3 10^3/uL (1.5-6.6); NEUTROPHILS % (AUTO) 61.1 %; PLT - PLATELET COUNT 277 10^3/uL (130-450); RED BLOOD COUNT 4.93 10^6/uL (4.70-6.10); RED CELL DISTRIBUTION WIDTH 12.2 % (12.0-15.0)
[2023-01-21 18:31] LABS: ALBUMIN 4.6 g/dL (3.2-5.5); ALBUMIN/GLOBULIN RATIO 1.6 (1.0-2.2); ALKALINE PHOSPHATASE 64 IU/L (42-121); ALT ALANINE AMINOTRANSFERASE 27 IU/L (10-60); AST ASPARTATE AMINOTRANSFERASE 22 IU/L (10-42); BILIRUBIN,TOTAL 0.7 mg/dL (0.2-1.0); BUN - BLOOD UREA NITROGEN 13 mg/dL (6-20); CARBON DIOXIDE - CO2 29 mmol/L (21-32); CHLORIDE 99 mmol/L (101-111); CHOL/HDL RATIO 4.1 (<5.0); CHOLESTEROL 248 mg/dL; GFR - MDRD 77 (>89); GLUCOSE 118 mg/dL (74-104); HDL CHOLESTEROL 60 mg/dL; LDL CHOLESTEROL,CALCULATED 132 mg/dL; LDL/HDL RATIO 2.2 (<3.6); POTASSIUM 4.2 mmol/L (3.5-4.5); SODIUM 134 mmol/L (135-145); TOTAL PROTEIN 7.4 g/dL (6.4-8.9); TRIGLYCERIDES 280 mg/dL (48-352); VLDL CHOLESTEROL 56 mg/dL
[2023-01-21 18:48] LABS: THYROID STIMULATING HORMONE 2.44 uIU/mL (0.34-5.60)
== END 2023-01-21 11:43 | disposition home or self-care (01) ==
LOC: LAB.N 11:42
PROVIDERS: ATTEND Family Medicine
DX: K21.9 Gastro-esophageal reflux disease without esophagitis (principal); Z12.5 Encounter for screening for malignant neoplasm of prostate; J45.909 Unspecified asthma, uncomplicated; F90.9 Attention-deficit hyperactivity disorder, unspecified type
CPT/HCPCS: 36415; 80053; 80061; 83721; 84153; 84443; 85025

== ENCOUNTER 2023-04-21 09:45 | Outpatient (CLI) | payer MEDICAID ==
[2023-04-21 12:44] LABS: ESTIMATED AVERAGE GLUCOSE 111 mg/dL (70-100); HEMOGLOBIN A1c% 5.5 % (4.27-6.07)
== END 2023-04-21 09:46 | disposition home or self-care (01) ==
LOC: LAB.N 09:45
PROVIDERS: ATTEND Physician Assistant
DX: R73.01 Impaired fasting glucose (principal)
CPT/HCPCS: 36415; 83036

== ENCOUNTER 2023-09-15 10:50 | Emergency (ER) | payer OTHER, MEDICAID ==
[2023-09-15 11:07] VITALS: BP 124/60; O2SAT 98
--- NOTE | 2023-09-15 11:51 | XRAY Report ---
PROCEDURE: Tib/Fib RT INDICATIONS: Trauma TECHNIQUE: 2 views of the tibia and fibula were acquired. COMPARISON: None. FINDINGS: Bones: Hairline fracture of the mid fibular shaft, seen on lateral view only. No suspicious bony les ions. Remote avulsion fracture of the medial malleolus. Soft tissues: No suspicious soft tissue calcifications or masses. IMPRESSION: Hairline fracture of the mid fibula shaft, seen on lateral view only. Reviewed by: Otis Medina MD on 09/15/2023 11:50 AM PDT Approved by: Otis Medina MD on 09/15/2023 11:50 AM PDT Station ID: [id number]
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
[2023-09-15] MEDS: HYDROcod/ACETAM 5/325 MG TABLET PO STA (13:04)
== END 2023-09-15 13:05 | disposition home or self-care (01) ==
LOC: ED 10:50
DX: S82.491A Other fracture of shaft of right fibula, initial encounter for closed fracture (principal); W22.8XXA Striking against or struck by other objects, initial encounter
CPT/HCPCS: 29515; 73562; 73590; 99283; 99284; A9270

== ENCOUNTER 2023-10-30 08:00 | Outpatient (CLI) | payer OTHER, MEDICAID ==
--- NOTE | 2023-10-31 13:29 | XRAY Report ---
PROCEDURE: Tib/Fib RT INDICATIONS: NONDISPLACED TRANSVERSE FX OF FIBULA SHAFT TECHNIQUE: 2 views of the tibia and fibula were acquired. COMPARISON: 09/15/2023 FINDINGS: Bones: There is remodeling the fracture line in bridging callus mid fibular transverse fracture. Nor mal bone mineralization. Soft tissues: No suspicious soft tissue calcifications or masses. IMPRESSION: Healing mid fibular fracture, nondisplaced Reviewed by: Byron aCsas MD on 10/31/2023 12:27 PM CADE Approved by: Byron Casas MD on 10/31/2023 12:27 PM AKMANUEL Station ID: [id number]
== END 2023-10-30 23:59 | disposition home or self-care (01) ==
LOC: DI.WOS 08:00
PROVIDERS: ATTEND Orthopaedic Surgery
DX: S82.424D Nondisplaced transverse fracture of shaft of right fibula, subsequent encounter for closed fracture with routine healing (principal)